=== PATIENT | female | born 1980 | race Caucasian/White ===

== ENCOUNTER 2018-04-20 12:47 | Emergency (ER) | payer BC, SELFPAY ==
--- NOTE | 2018-04-20 15:02 | EDPHYS ---
Physician Documentation [facility] Name: Ritika Lewis Age: 38 yrs Sex: Female : 1980 Arrival Date: 04/20/2018 Time: 12:49 Bed 11 Private MD: David Vallejo ED Physician Jose Sargent HPI: 04/20 14:58 This 38 yrs old Female presents to ER via Ambulatory with complaints of josh Congestion, Cough. 14:58 The patient or guardian reports cough, that is constant. Onset: The symptoms/episode josh began/occurred 3 day(s) ago. Severity of symptoms: At their worst the symptoms were mild, in the emergency department the symptoms are unchanged. Modifying factors: The symptoms are alleviated by nothing. Associated signs and symptoms: The patient has no apparent associated signs or symptoms. The patient has not experienced similar symptoms in the past. Historical: - Allergies: 13:08 No Known Allergies; ph - PSHx: 13:08 Tubal ligation; Knee surgery; ph - Immunization history:: Adult Immunizations up to date. - Social history:: Smoking status: Patient/guardian denies using tobacco. - Ebola Screening: : Patient negative for fever greater than or equal to 101.5 degrees Fahrenheit, and additional compatible Ebola Virus Disease symptoms Patient denies exposure to infectious person Patient denies travel to an Ebola-affected area in the 21 days before illness onset. ROS: 14:59 Constitutional: Negative for fever, chills, and weight loss, Eyes: Negative for injury, josh pain, redness, and discharge, ENT: Negative for injury, pain, and discharge, Neck: Negative for injury, pain, and swelling, Cardiovascular: Negative for chest pain, palpitations, and edema, Abdomen/GI: Negative for abdominal pain, nausea, vomiting, diarrhea, and constipation, Back: Negative for injury and pain, : Negative for injury, bleeding, discharge, and swelling, MS/Extremity: Negative for injury and deformity, Skin: Negative for injury, rash, and discoloration, Neuro: Negative for headache, weakness, numbness, tingling, and seizure, Psych: Negative for depression, anxiety, suicide ideation, homicidal ideation, and hallucinations, Allergy/Immunology: Negative for hives, rash, and allergies, Endocrine: Negative for neck swelling, polydipsia, polyuria, polyphagia, and marked weight changes, Hematologic/Lymphatic: Negative for swollen nodes, abnormal bleeding, and unusual bruising. 14:59 Respiratory: Positive for cough, with green sputum. Exam: 14:59 Constitutional: This is a well developed, well nourished patient who is awake, alert, josh and in no acute distress. Head/Face: Normocephalic, atraumatic. Eyes: Pupils equal round and reactive to light, extra-ocular motions intact. Lids and lashes normal. Conjunctiva and sclera are non-icteric and not injected. Cornea within normal limits. Periorbital areas with no swelling, redness, or edema. ENT: Nares patent. No nasal discharge, no septal abnormalities noted. Tympanic membranes are normal and external auditory canals are clear. Oropharynx with no redness, swelling, or masses, exudates, or evidence of obstruction, uvula midline. Mucous membranes moist. Neck: Trachea midline, no thyromegaly or masses palpated, and no cervical lymphadenopathy. Supple, full range of motion without nuchal rigidity, or vertebral point tenderness. No Meningismus. Chest/axilla: Normal chest wall appearance and motion. Nontender with no deformity. No lesions are appreciated. Cardiovascular: Regular rate and rhythm with a normal S1 and S2. No gallops, murmurs, or rubs. Normal PMI, no JVD. No pulse deficits. Respiratory: Lungs have equal breath sounds bilaterally, clear to auscultation and percussion. No rales, rhonchi or wheezes noted. No increased work of breathing, no retractions or nasal flaring. Abdomen/GI: Soft, non-tender, with normal bowel sounds. No distension or tympany. No guarding or rebound. No evidence of tenderness throughout. Back: No spinal tenderness. No costovertebral tenderness. Full range of motion. Skin: Warm, dry with normal turgor. Normal color with no rashes, no lesions, and no evidence of cellulitis. MS/ Extremity: Pulses equal, no cyanosis. Neurovascular intact. Full, normal range of motion. Neuro: Awake and alert, GCS 15, oriented to person, place, time, and situation. Cranial nerves II-XII grossly intact. Motor strength 5/5 in all extremities. Sensory grossly intact. Cerebellar exam normal. Normal gait. Psych: Awake, alert, with orientation to person, place and time. Behavior, mood, and affect are within normal limits. Vital Signs: 13:08 BP 145 / 82; Pulse 76; Resp 18; Temp 98.3; Pulse Ox 99% on R/A; Weight 65.77 kg; Height ph 5 ft. 8 in. (172.72 cm); 13:08 Body Mass Index 22.05 (65.77 kg, 172.72 cm) ph MDM: 14:21 Patient medically screened. [facility] 14:59 Data reviewed: vital signs, nurses notes, lab test result(s), radiologic studies, plain josh films. 04/20 14:44 Order name: Urine Dipstick--Ancillary (enter results) eb 04/20 14:37 Order name: Chest Single View XRAY ss Administered Medications: 15:05 Drug: Zithromax 500 mg Route: PO; rv 15:28 Follow up: Response: No adverse reaction rv Disposition: 04/20/18 15:01 Discharged to Home. Impression: Cough, Acute upper respiratory infection, unspecified. - Condition is Stable. - Discharge Instructions: Upper Respiratory Infection, Adult, Cool Mist Vaporizer, Upper Respiratory Infection, Adult, [id number], Cough, Adult, [id number], Cough, Adult. - Prescriptions for Cheratussin AC 10- 100 mg/5 mL Oral liquid - take 10 milliliter by ORAL route every 6 hours; 160 milliliter. Zithromax Z- Claudio 250 mg Oral Tablet - take 1 tablet by ORAL route as directed for 5 days Day 1 - take two (2) tablets one time. Day 2, 3, 4 , 5 take one (1) tablet once daily.; 6 tablet. - Medication Reconciliation Form, Thank You Letter, Antibiotic Education, Prescription Opioid Use form. - Follow up: David Vallejo MD; When: 2 - 3 days; Reason: Recheck today's complaints, Continuance of care, Re-evaluation by your physician. - Problem is new. - Symptoms have improved. Signatures: Dispatcher [employer] EDJose Mejia MD MD cha Hall, Patricia, RN RN Walt Walker, RN RN rv Corrections: (The following items were deleted from the chart) 15:33 15:01 04/20/2018 15:01 Discharged to Home. Impression: Cough; Acute upper respiratory rv infection, unspecified. Condition is Stable. Forms are Medication Reconciliation Form, Thank You Letter, Antibiotic Education, Prescription Opioid Use. Follow up: David Vallejo; When: 2 - 3 days; Reason: Recheck today's complaints, Continuance of care, Re-evaluation by your physician. Problem is new. Symptoms have improved. josh
--- NOTE | 2018-04-20 15:02 | ER ---
Nurse's Notes [facility] Name: Ritika Lewis Age: 38 yrs Sex: Female : 1980 Arrival Date: 04/20/2018 Time: 12:49 Bed 11 Private MD: David Vallejo Diagnosis: Cough;Acute upper respiratory infection, unspecified Presentation: 04/20 13:06 Presenting complaint: Patient states: " I lost my voice last week and now I've got a ph cough and I'm coughing up green stuff." Reports SOB denies N/V/D. Transition of care: patient was not received from another setting of care. Onset of symptoms was April 20, 2018. Risk Assessment: Do you want to hurt yourself or someone else? Patient reports no desire to harm self or others. Initial Sepsis Screen: Does the patient meet any 2 criteria? No. Patient's initial sepsis screen is negative. Does the patient have a suspected source of infection? No. Patient's initial sepsis screen is negative. Care prior to arrival: None. 13:06 Method Of Arrival: Ambulatory 13:06 Acuity: MACKENZIE 4 ph Historical: - Allergies: 13:08 No Known Allergies; ph - PSHx: 13:08 Tubal ligation; Knee surgery; ph - Immunization history:: Adult Immunizations up to date. - Social history:: Smoking status: Patient/guardian denies using tobacco. - Ebola Screening: : Patient negative for fever greater than or equal to 101.5 degrees Fahrenheit, and additional compatible Ebola Virus Disease symptoms Patient denies exposure to infectious person Patient denies travel to an Ebola-affected area in the 21 days before illness onset. Screenin:32 Abuse screen: Denies threats or abuse. Denies injuries from another. Nutritional iw screening: No deficits noted. Tuberculosis screening: No symptoms or risk factors identified. Fall Risk None identified. Assessment: 14:32 General: Appears in no apparent distress. Behavior is calm, cooperative. Pain: Denies iw pain. Cardiovascular: Capillary refill < 3 seconds in bilateral fingers Patient's skin is warm and dry. Respiratory: Airway is patent Respiratory effort is even, unlabored, Respiratory pattern is regular, symmetrical, Breath sounds are clear bilaterally. GI: Abdomen is flat, non-distended. Derm: Skin is intact, is healthy with good turgor. Musculoskeletal: Range of motion: intact in all extremities. Vital Signs: 13:08 BP 145 / 82; Pulse 76; Resp 18; Temp 98.3; Pulse Ox 99% on R/A; Weight 65.77 kg; Height ph 5 ft. 8 in. (172.72 cm); 13:08 Body Mass Index 22.05 (65.77 kg, 172.72 cm) ph ED Course: 12:49 Patient arrived in ED. sb2 12:50 David Vallejo MD is Private Physician. sb2 13:07 Triage completed. ph 13:08 Arm band placed on. ph 14:20 Jose Sargent MD is Attending Physician. josh 14:32 Aviva Mendes, RN is Primary Nurse. iw 14:53 X-ray completed. Portable x-ray completed in exam room. Patient tolerated procedure jb2 well. 14:54 Chest Single View XRAY In Process Unspecified. EDMS 15:01 David Vallejo MD is Referral Physician. josh 15:31 No provider procedures requiring assistance completed. Patient did not have IV access rv during this emergency room visit. 15:32 Patient has correct armband on for positive identification. Bed in low position. Call rv light in reach. Pulse ox on. NIBP on. Administered Medications: 15:05 Drug: Zithromax 500 mg Route: PO; rv 15:28 Follow up: Response: No adverse reaction rv Outcome: 15:01 Discharge ordered by . josh 15:32 Discharged to home ambulatory. rv 15:32 Condition: good 15:32 Discharge instructions given to patient, Instructed on discharge instructions, follow up and referral plans. medication usage, Demonstrated understanding of instructions, follow-up care, medications, Prescriptions given X 2. 15:33 Patient left the ED. rv Signatures: Dispatcher [employer] EDGA Jose Sargent MD MD cha Buechter, Jesse jb2 Aviva Mendes, BE LR Shayy Green RN RN Krissy Weber sb2 Walt Walker RN RN rv
[2018-04-20] MEDS ORDERED: AZITHROMYCIN 250 MG TAB ONE (15:05)
--- NOTE | 2018-04-20 15:26 | RAD REPORT ---
EXAM DESCRIPTION: RAD - Chest Single View - 04/20/2018 2:54 pm CLINICAL HISTORY: Cough and congestion, shortness of breath COMPARISON: None. TECHNIQUE: AP portable chest image was obtained 1448 hours . FINDINGS: Lungs are clear. Heart and vasculature are normal. Nipple shadow present lower right lung field. No measurable pleural effusion and no pneumothorax. No gross bony abnormality seen. No acute a ortic findings suspected. IMPRESSION: No acute cardiopulmonary process.
[2018-04-20 17:28] LABS: Urine Blood NEGATIVE (NEG); Urine Glucose NEGATIVE (NEG); Urine Protein NEGATIVE (NEG)
[2018-04-27] MEDS ORDERED: hydrOXYzine HCl 25 MG TAB ONE (20:12)
== END 2018-04-20 15:33 | disposition home or self-care (01) ==
LOC: ER 12:47
DX: J06.9 Acute upper respiratory infection, unspecified (principal)
CPT/HCPCS: 71045; 81003; 99284

== ENCOUNTER 2018-08-31 11:58 | Emergency (ER) | payer SELFPAY ==
--- NOTE | 2018-08-31 14:48 | ER ---
Nurse's Notes [facility] Name: Ritika Lewis Age: 38 yrs Sex: Female : 1980 Arrival Date: 08/31/2018 Time: 12:02 Bed 11 Private MD: David Vallejo Diagnosis: Influenza-like illness Presentation: 08/31 12:13 Presenting complaint: Patient states: Bilateral ear pain, described as having fluid in sg the ears, reports having chest congestion with cough sneezing and runny nose with back pain starting this morning, reports taking OTC cold medication but nothing is relieving the pain. Transition of care: patient was not received from another setting of care. Onset of symptoms was August 31, 2018. Risk Assessment: Do you want to hurt yourself or someone else? Patient reports no desire to harm self or others. Initial Sepsis Screen: Does the patient meet any 2 criteria? No. Patient's initial sepsis screen is negative. Does the patient have a suspected source of infection? No. Patient's initial sepsis screen is negative. Care prior to arrival: None. 12:13 Method Of Arrival: Ambulatory sg 12:13 Acuity: MACKENZIE 4 sg [employer]: 12:14 LMP 08/11/2018 sg Historical: - Allergies: 12:15 No Known Allergies; sg - Home Meds: 12:15 None [Active]; sg - PSHx: 12:15 Tubal ligation; Knee surgery; sg - Immunization history:: Adult Immunizations up to date. - Social history:: Smoking status: Patient/guardian denies using tobacco. - Ebola Screening: : Patient negative for fever greater than or equal to 101.5 degrees Fahrenheit, and additional compatible Ebola Virus Disease symptoms Patient denies exposure to infectious person Patient denies travel to an Ebola-affected area in the 21 days before illness onset No symptoms or risks identified at this time. Screenin:15 Abuse screen: Denies threats or abuse. Denies injuries from another. Nutritional iw screening: No deficits noted. Tuberculosis screening: No symptoms or risk factors identified. Fall Risk None identified. Assessment: 13:14 General: Appears in no apparent distress. Behavior is calm, cooperative. Pain: iw Complains of pain in right ear and left ear. Neuro: Level of Consciousness is awake, alert, obeys commands, Oriented to person, place, time, situation. Cardiovascular: Patient's skin is warm and dry. Respiratory: Respiratory effort is even, unlabored, Respiratory pattern is regular. EENT: Reports pain when swallowing. Derm: Skin is intact, is healthy with good turgor. Musculoskeletal: Range of motion: intact in all extremities. 15:05 Reassessment: Patient appears in no apparent distress at this time. Patient and/or iw family updated on plan of care and expected duration. Pain level reassessed. Patient is alert, oriented x 3, equal unlabored respirations, skin warm/dry/pink. Patient states feeling better. Patient states symptoms have improved. Vital Signs: 12:14 BP 142 / 86; Pulse 70; Resp 17; Temp 97.7; Pulse Ox 100% on R/A; Pain 6/10; sg 14:40 BP 138 / 74; Pulse 69; Resp 16; Pulse Ox 98% on R/A; Pain 4/10; iw ED Course: 12:02 Patient arrived in ED. mr 12:03 David Vallejo MD is Private Physician. mr 12:13 Arm band placed on. EKG completed in triage. Results shown to MD. sg 12:14 Triage completed. sg 12:29 Jose Wise PA is PHCP. cp 12:29 Domo Mina MD is Attending Physician. cp 12:49 Aviva Mendes RN is Primary Nurse. iw 13:16 No provider procedures requiring assistance completed. Flu and/or RSV swab sent to lab. iw Strep swab sent to lab. 14:00 Patient has correct armband on for positive identification. iw 14:47 David Vallejo MD is Referral Physician. cp 15:06 Patient did not have IV access during this emergency room visit. iw Administered Medications: No medications were administered Outcome: 14:48 Discharge ordered by MD. cp 15:06 Discharged to home ambulatory. iw 15:06 Condition: good 15:06 Discharge instructions given to patient, Instructed on discharge instructions, follow up and referral plans. medication usage, Demonstrated understanding of instructions, follow-up care, medications, Prescriptions given X 2. 15:08 Patient left the ED. iw Signatures: Gagandeep Fernandez RN RN Juany Hightower mr Aviva Mendes RN RN Jose Wise PA PA cp
--- NOTE | 2018-08-31 14:49 | EDPHYS ---
Physician Documentation [facility] Name: Ritika Lewis Age: 38 yrs Sex: Female : 1980 Arrival Date: 08/31/2018 Time: 12:02 Bed 11 Private MD: David Vallejo ED Physician Domo Mina HPI: 08/31 12:40 This 38 yrs old Female presents to ER via Ambulatory with complaints of cough.cp 12:40 The patient or guardian reports cough, that is intermittent, with productive sputum, cp flu symptoms, arthralgias, low-grade fever. 12:40 Onset: The symptoms/episode began/occurred last night, and became worse this morning. cp Associated signs and symptoms: Pertinent positives: earache, sore throat, Pertinent negatives: chest pain, diarrhea, vomiting. Severity of symptoms: in the emergency department the symptoms are unchanged despite home interventions. 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 - Social history:: Smoking status: Patient/guardian denies using tobacco. - Ebola Screening: : Patient negative for fever greater than or equal to 101.5 degrees Fahrenheit, and additional compatible Ebola Virus Disease symptoms Patient denies exposure to infectious person Patient denies travel to an Ebola-affected area in the 21 days before illness onset No symptoms or risks identified at this time. ROS: 12:45 Constitutional: Positive for body aches, Negative for fever, poor PO intake. cp 12:45 Eyes: Negative for injury, pain, redness, and discharge. cp 12:45 ENT: Positive for ear pain, sinus congestion, sore throat, Negative for drainage from cp ear(s), difficulty swallowing, difficulty handling secretions. 12:45 Neck: Negative for pain with movement, pain at rest, stiffness. 12:45 Respiratory: Positive for cough, Negative for shortness of breath, wheezing. 12:45 Abdomen/GI: Negative for abdominal pain, nausea, vomiting, and diarrhea. 12:45 Back: Positive for pain at rest, pain with movement. 12:45 Skin: Negative for cellulitis, rash. 12:45 Neuro: Positive for headache, Negative for altered mental status, weakness. 12:45 All other systems are negative. Exam: 12:48 Constitutional: The patient appears in no acute distress, alert, awake, non-toxic, well cp developed, well nourished. 12:48 Head/Face: Normocephalic, atraumatic. cp 12:50 Eyes: Periorbital structures: appear normal, Conjunctiva: normal, no exudate, no cp injection, Lids and lashes: appear normal, bilaterally. 12:50 ENT: External ear(s): are unremarkable, Ear canal(s): are normal, clear, TM's: bulging, cp is not appreciated, bilaterally, dullness, bilaterally, erythema, is not appreciated, bilaterally, Nose: is normal, Mouth: Lips: moist, Oral mucosa: pink and intact, moist, Posterior pharynx: is normal, airway is patent, no erythema, no exudate, Voice: is normal. 12:50 Neck: ROM/movement: is normal, is supple, without pain, no range of motions limitations, no meningismus, no nuchal rigidity, Lymph nodes: no appreciated lymphadenopathy. 12:50 Chest/axilla: Inspection: normal, Palpation: is normal, no crepitus, no tenderness. 12:50 Cardiovascular: Rate: normal, Rhythm: regular. 12:50 Respiratory: the patient does not display signs of respiratory distress, Respirations: normal, no use of accessory muscles, no retractions, no splinting, no tachypnea, labored breathing, is not present, Breath sounds: bronchial sounds, that are mild, are heard diffusely, decreased breath sounds, are not appreciated, stridor, is not appreciated, + upper airway congestion. wheezing: is not appreciated. 12:50 Abdomen/GI: Inspection: abdomen appears normal, Palpation: abdomen is soft and non-tender, in all quadrants, rebound tenderness, is not appreciated, voluntary guarding, is not appreciated, involuntary guarding, is not appreciated. 12:50 Back: pain, that is mild, ROM is normal. 12:50 Skin: cellulitis, is not appreciated, no rash present. 12:50 Neuro: Orientation: to person, place \\T\\ time. Mentation: is normal, Cerebellar function: is grossly normal, Motor: is normal, Sensation: is normal. Vital Signs: 12:14 BP 142 / 86; Pulse 70; Resp 17; Temp 97.7; Pulse Ox 100% on R/A; Pain 6/10; sg 14:40 BP 138 / 74; Pulse 69; Resp 16; Pulse Ox 98% on R/A; Pain 4/10; iw MDM: 12:29 Patient medically screened. cp 14:45 Antibiotic administration: Not indicated, the patient does not have an appreciated cp infiltrate. 14:45 Data reviewed: vital signs, nurses notes, lab test result(s), and as a result, I will cp discharge patient. 08/31 12:33 Order name: Strep cp 08/31 12:33 Order name: Influenza Screen (a \\T\\ B) cp 08/31 12:33 Order name: Urine Dipstick-Ancillary (obtain specimen); Complete Time: 13:14 cp 08/31 13:35 Order name: Throat Culture EDMS Administered Medications: No medications were administered Disposition: 08/31/18 14:48 Discharged to Home. Impression: Influenza-like illness. - Condition is Stable. - Discharge Instructions: Influenza, Adult. - Prescriptions for Tamiflu 75 mg Oral Capsule - take 1 tablet by ORAL route every 12 hours for 5 days; 10 tablet. Guaifenesin AC 10- 100 mg/5 mL Oral Liquid - take 10 milliliters by ORAL route every 4 hours As needed; 180 milliliter. - Work release form, Medication Reconciliation Form, Thank You Letter, Antibiotic Education, Prescription Opioid Use form. - Follow up: David Vallejo MD; When: 2 - 3 days; Reason: no improvement. Addendum: 09/05/2018 03:30 Co-signature as Attending Physician, Domo Mina MD Available for consultation at p s1 all times. Signatures: Dispatcher [employer] EDMS Gagandeep Fernandez RN RN Aviva Franks RN RN iw Jose Wise PA PA cp Singer, Phillip, MD MD ps1 Corrections: (The following items were deleted from the chart) 08/31 15:07 12:33 Urine Test ordered. [facility] 15:08 14:48 08/31/2018 14:48 Discharged to Home. Impression: Influenza-like illness. iw Condition is Stable. Forms are Medication Reconciliation Form, Thank You Letter, Antibiotic Education, Prescription Opioid Use. Follow up: David Vallejo; When: 2 - 3 days; Reason: no improvement. cp 21:10 21:09 This 38 yrs old Female presents to ER via Ambulatory with complaints of cp cough. cp 21:14 21:10 Constitutional: Positive for body aches, Negative for fever, poor PO intake, cp cp 21:14 21:10 Eyes: Negative for injury, pain, redness, and discharge, cp cp 21:14 21:10 ENT: Positive for ear pain, sinus congestion, sore throat, Negative for drainage cp from ear(s), difficulty swallowing, difficulty handling secretions, cp 21:14 21:10 Neck: Negative for pain with movement, pain at rest, stiffness, cp cp 21:14 21:10 Cardiovascular: Negative for chest pain, cp cp 21:14 21:10 Respiratory: Positive for cough, "sounds productive", Negative for wheezing, cp cp 21:14 21:10 Abdomen/GI: Negative for abdominal pain, nausea, vomiting, and diarrhea, cp anorexia, cp 21:14 21:10 Back: Positive for pain at rest, pain with movement, cp cp 21:14 21:10 Skin: Negative for cellulitis, rash, cp cp 21:14 21:10 Neuro: Negative for altered mental status, weakness, cp cp 21:14 21:10 All other systems are negative, cp cp
== END 2018-08-31 15:08 | disposition home or self-care (01) ==
LOC: ER 11:58
DX: J11.1 Influenza due to unidentified influenza virus with other respiratory manifestations (principal)
CPT/HCPCS: 87070; 87081; 87804; 99283

== ENCOUNTER 2018-11-02 09:24 | Emergency (ER) | payer SELFPAY ==
[2018-11-02 09:57] LABS: Urine Blood TRACE (NEG); Urine Glucose NEGATIVE (NEG); Urine Protein NEGATIVE (NEG)
--- NOTE | 2018-11-02 10:18 | RAD REPORT ---
EXAM DESCRIPTION: Ribs Right - 11/02/2018 10:08 am CLINICAL HISTORY: Right rib pain FINDINGS: No fracture is seen
--- NOTE | 2018-11-02 10:21 | EDPHYS ---
Physician Documentation [facility] Name: Ritika Lewis Age: 38 yrs Sex: Female : 1980 Arrival Date: 11/02/2018 Time: 09:27 Bed 24 Private MD: David Vallejo ED Physician Jose Sargent HPI: 11/02 09:50 This 38 yrs old Female presents to ER via Ambulatory with complaints of Chest josh Wall Pain. 09:50 The patient or guardian reports chest pain that is located primarily in the anterior josh chest wall, right. The pain does not radiate. Associated signs and symptoms: The patient has no apparent associated signs or symptoms. The chest pain is described as stabbing. Modifying factors: The symptoms are alleviated by remaining still, the symptoms are aggravated by activity, breathing, cough, movement, palpation of area, swallowing, twisting torso. Severity of pain: At its worst the pain was moderate in the emergency department the pain is unchanged. 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 - Social history:: Smoking status: Patient/guardian denies using tobacco. - Ebola Screening: : No symptoms or risks identified at this time. - Family history:: not pertinent. ROS: 09:50 Constitutional: Negative for fever, chills, and weight loss, Eyes: Negative for injury, josh pain, redness, and discharge, ENT: Negative for injury, pain, and discharge, Neck: Negative for injury, pain, and swelling, Cardiovascular: Negative for chest pain, palpitations, and edema, Abdomen/GI: Negative for abdominal pain, nausea, vomiting, diarrhea, and constipation, Back: Negative for injury and pain, : Negative for injury, bleeding, discharge, and swelling, MS/Extremity: Negative for injury and deformity, Skin: Negative for injury, rash, and discoloration, Neuro: Negative for headache, weakness, numbness, tingling, and seizure, Psych: Negative for depression, anxiety, suicide ideation, homicidal ideation, and hallucinations, Endocrine: Negative for neck swelling, polydipsia, polyuria, polyphagia, and marked weight changes, Hematologic/Lymphatic: Negative for swollen nodes, abnormal bleeding, and unusual bruising. 09:50 Respiratory: Positive for right chest wall contusion. Exam: 09:50 Constitutional: This is a well developed, well nourished patient who is awake, alert, josh and in no acute distress. Head/Face: Normocephalic, atraumatic. Eyes: Pupils equal round and reactive to light, extra-ocular motions intact. Lids and lashes normal. Conjunctiva and sclera are non-icteric and not injected. Cornea within normal limits. Periorbital areas with no swelling, redness, or edema. ENT: Nares patent. No nasal discharge, no septal abnormalities noted. Tympanic membranes are normal and external auditory canals are clear. Oropharynx with no redness, swelling, or masses, exudates, or evidence of obstruction, uvula midline. Mucous membranes moist. Neck: Trachea midline, no thyromegaly or masses palpated, and no cervical lymphadenopathy. Supple, full range of motion without nuchal rigidity, or vertebral point tenderness. No Meningismus. Chest/axilla: Normal chest wall appearance and motion. Nontender with no deformity. No lesions are appreciated. Cardiovascular: Regular rate and rhythm with a normal S1 and S2. No gallops, murmurs, or rubs. Normal PMI, no JVD. No pulse deficits. Abdomen/GI: Soft, non-tender, with normal bowel sounds. No distension or tympany. No guarding or rebound. No evidence of tenderness throughout. Back: No spinal tenderness. No costovertebral tenderness. Full range of motion. Skin: Warm, dry with normal turgor. Normal color with no rashes, no lesions, and no evidence of cellulitis. MS/ Extremity: Pulses equal, no cyanosis. Neurovascular intact. Full, normal range of motion. Neuro: Awake and alert, GCS 15, oriented to person, place, time, and situation. Cranial nerves II-XII grossly intact. Motor strength 5/5 in all extremities. Sensory grossly intact. Cerebellar exam normal. Normal gait. Psych: Awake, alert, with orientation to person, place and time. Behavior, mood, and affect are within normal limits. 09:50 Chest/axilla: Inspection: normal, Palpation: tenderness, that is mild, of the right breast, Axilla: are normal, Breasts: are normal, Lymph nodes: lymphadenopathy is not appreciated. 09:50 Respiratory: the patient does not display signs of respiratory distress, Respirations: normal, Breath sounds: are clear throughout, Respiratory rate: 18 Vital Signs: 09:32 BP 123 / 76; Pulse 68; Resp 18; Temp 97.7; Pulse Ox 100% ; Weight 73.03 kg; Height 5 sv ft. 8 in. (172.72 cm); Pain 6/10; 10:39 BP 120 / 74; Pulse 62; Resp 16; Pulse Ox 99% on R/A; Pain 3/10; ls4 09:32 Body Mass Index 24.48 (73.03 kg, 172.72 cm) sv MDM: 09:34 Patient medically screened. [facility] 11/02 09:47 Order name: Urine Dipstick--Ancillary (enter results) 11/02 09:47 Order name: Urine --Ancillary (enter results) 11/02 09:33 Order name: Ribs Right XRAY sv Administered Medications: 10:36 Drug: Motrin 600 mg Route: PO; ls4 11:02 Follow up: Response: No adverse reaction; Marked relief of symptoms ls4 Disposition: 11/02/18 10:20 Discharged to Home. Impression: Other chest pain, Contusion of right front wall of thorax. - Condition is Stable. - Discharge Instructions: Chest Wall Pain. - Prescriptions for Ibuprofen 600 mg Oral Tablet - take 1 tablet by ORAL route every 8 hours As needed take with food; 21 tablet. Tylenol- Codeine #3 300-30 mg Oral Tablet - take 2 tablet by ORAL route every 6 hours As needed; 30 tablet. - Medication Reconciliation Form, Thank You Letter, Antibiotic Education, Prescription Opioid Use, Work release form form. - Follow up: David Vallejo; When: 2 - 3 days; Reason: Recheck today's complaints, Re-evaluation by your physician. - Problem is new. - Symptoms have improved. Signatures: Dispatcher [employer] Jo Ann Carvalho, RN RN Jose Jones MD MD cha Stewart, Lisa, RN RN ls4 Corrections: (The following items were deleted from the chart) 10:48 10:20 11/02/2018 10:20 Discharged to Home. Impression: Other chest pain; Contusion of ls4 right front wall of thorax. Condition is Stable. Discharge Instructions: Chest Wall Pain. Prescriptions for Ibuprofen 600 mg Oral Tablet - take 1 tablet by ORAL route every 8 hours As needed take with food; 21 tablet, Tylenol-Codeine #3 300-30 mg Oral Tablet - take 2 tablet by ORAL route every 6 hours As needed; 30 tablet. and Forms are Medication Reconciliation Form, Thank You Letter, Antibiotic Education, Prescription Opioid Use. Follow up: David Vallejo; When: 2 - 3 days; Reason: Recheck today's complaints, Re-evaluation by your physician. Problem is new. Symptoms have improved. josh
--- NOTE | 2018-11-02 10:21 | ER ---
Nurse's Notes [facility] Name: Ritika Lewis Age: 38 yrs Sex: Female : 1980 Arrival Date: 11/02/2018 Time: 09:27 Bed 24 Private MD: David Vallejo Diagnosis: Other chest pain;Contusion of right front wall of thorax Presentation: 11/02 09:31 Presenting complaint: Patient states: right rib pain started Bhavesh. Pt was playing sv volleyball and dove for a ball. Transition of care: patient was not received from another setting of care. Onset of symptoms was October 29, 2018. Care prior to arrival: None. 09:31 Method Of Arrival: Ambulatory sv 09:31 Acuity: MACKENZIE 4 sv 09:58 Risk Assessment: Do you want to hurt yourself or someone else? Patient reports no ls4 desire to harm self or others. Initial Sepsis Screen: Does the patient meet any 2 criteria? No. Patient's initial sepsis screen is negative. Does the patient have a suspected source of infection? No. Patient's initial sepsis screen is negative. Triage Assessment: 09:58 General: Appears in no apparent distress. Behavior is calm, cooperative. 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 - Social history:: Smoking status: Patient/guardian denies using tobacco. - Ebola Screening: : No symptoms or risks identified at this time. - Family history:: not pertinent. Screenin:57 Abuse screen: Denies threats or abuse. Denies injuries from another. Nutritional ls4 screening: No deficits noted. Tuberculosis screening: No symptoms or risk factors identified. Fall Risk None identified. Assessment: 10:30 Pain: Complains of pain in right breast. ls4 10:30 General: Appears in no apparent distress. Neuro: No deficits noted. Respiratory: No ls4 deficits noted. Airway is patent Respiratory effort is even, unlabored, Respiratory pattern is regular. Derm: No deficits noted. Musculoskeletal: No deficits noted. Vital Signs: 09:32 BP 123 / 76; Pulse 68; Resp 18; Temp 97.7; Pulse Ox 100% ; Weight 73.03 kg; Height 5 sv ft. 8 in. (172.72 cm); Pain 6/10; 10:39 BP 120 / 74; Pulse 62; Resp 16; Pulse Ox 99% on R/A; Pain 3/10; ls4 09:32 Body Mass Index 24.48 (73.03 kg, 172.72 cm) sv ED Course: 09:27 Patient arrived in ED. mr 09:28 David Vallejo MD is Private Physician. mr 09:32 Triage completed. sv 09:33 Arm band placed on. sv 09:34 Jose Sargent MD is Attending Physician. josh 09:56 Patient moved to radiology via wheelchair. sw 09:57 Latosha Adams, BE is Primary Nurse. ls4 09:57 Patient has correct armband on for positive identification. ls4 09:57 No provider procedures requiring assistance completed. ls4 10:07 X-ray completed. Patient tolerated procedure well. sw 10:08 Ribs Right XRAY In Process Unspecified. EDMS 10:11 Patient moved back from radiology. sw 10:20 David Vallejo MD is Referral Physician. josh 10:48 Patient did not have IV access during this emergency room visit. ls4 Administered Medications: 10:36 Drug: Motrin 600 mg Route: PO; ls4 11:02 Follow up: Response: No adverse reaction; Marked relief of symptoms ls4 Outcome: 10:20 Discharge ordered by . josh 10:48 Patient left the ED. ls4 11:00 Discharged to home ambulatory, with family. ls4 11:00 Condition: good 11:00 Discharge instructions given to patient, family, Instructed on discharge instructions, follow up and referral plans. medication usage, Demonstrated understanding of instructions, follow-up care, medications, Prescriptions given X 2. Signatures: Dispatcher [employer] EDDE Jo Ann Craig RN RN sv Anderson, Corey, MD MD cha Rivera, Mary mr GoodenCristiane Lisa, BE RN ls4 Corrections: (The following items were deleted from the chart) 09:33 09:32 Pulse 68bpm; Resp 18bpm; Pulse Ox 100%; Temp 97.7F; 73.03 kg; Height 5 ft. 8 in.; sv BMI: 24.4; Pain 6/10; sv
[2018-11-02] MEDS ORDERED: IBUPROFEN 400 MG TAB ONE (10:43)
[2018-11-02] MEDS ORDERED: IBUPROFEN 200 MG TAB PO ONE (10:43)
== END 2018-11-02 10:48 | disposition home or self-care (01) ==
LOC: ER 09:24
DX: S20.211A Contusion of right front wall of thorax, initial encounter (principal); W18.39XA Other fall on same level, initial encounter; Y93.68 Activity, volleyball (beach) (court); Y92.9 Unspecified place or not applicable
CPT/HCPCS: 81003; 81025; 99283

== ENCOUNTER 2021-08-01 12:45 | Emergency (ER) | payer BC, SELFPAY ==
[2021-08-01 14:24] LABS: SARS-COV-2 RT PCR NEGATIVE (NEGATIVE)
[2021-08-01] MEDS ORDERED: HYDROCODONE/CHLORPHEN 5 ML/OSYR ONE (15:22)
--- NOTE | 2021-08-01 15:42 | RAD REPORT ---
EXAM DESCRIPTION: RAD - Chest Single View - 08/01/2021 3:34 pm CLINICAL HISTORY: COUGH COMPARISON: Chest Single View dated 04/20/2018 FINDINGS: Lines: None. Lungs: No evidence of edema or pneumonia. Pleural: No significant pleural effusions or pneumothorax. Cardiac: The heart size is within normal limits. Bones: No acute fractures. Other: IMPRESSION: No acute cardiopulmonary disease.
--- NOTE | 2021-08-01 16:02 | EDPHYS ---
Physician Documentation [facility] Name: Ritika Lewis Age: 41 yrs Sex: Female : 1980 Arrival Date: 08/01/2021 Time: 12:47 Bed 9 Private MD: Kaleigh Carbajal ED Physician Waqas Hilton HPI: 08/02 07:23 This 41 yrs old Female presents to ER via Ambulatory with complaints of Cough, Chest kdr Congestion, Sinus Pain. 07:23 This 41 yrs old Female presents to ER via Ambulatory with complaints of Cough, Chest kdr Congestion, Sinus Pain. 07:23 The patient or guardian reports cough, that is intermittent, described as mild, kdr difficulty breathing. Onset: The symptoms/episode began/occurred gradually, 3 day(s) ago. Severity of symptoms: At their worst the symptoms were mild, in the emergency department the symptoms are unchanged. Modifying factors: The symptoms are alleviated by nothing, the symptoms are aggravated by Talking and congestion. Associated signs and symptoms: The patient has no apparent associated signs or symptoms. The patient has experienced similar episodes in the past, multiple times. The patient has not recently seen a physician. Patient complains of sinus congestion and a cough for 3 days. She is concerned that she may have recurrent bronchitis. She states that she gets this specific problem annually. 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 - Social history:: Smoking status: Patient denies any tobacco usage or history of. ROS: 08/02 07:23 Constitutional: Negative for fever, chills, and weight loss, Eyes: Negative for injury, kdr pain, redness, and discharge, Neck: Negative for injury, pain, and swelling, Cardiovascular: Negative for chest pain, palpitations, and edema, Abdomen/GI: Negative for abdominal pain, nausea, vomiting, diarrhea, and constipation, Back: Negative for injury and pain, : Negative for injury, bleeding, discharge, and swelling, MS/Extremity: Negative for injury and deformity, Skin: Negative for injury, rash, and discoloration, Neuro: Negative for headache, weakness, numbness, tingling, and seizure activity. Psych: Negative for depression, anxiety, suicide ideation, homicidal ideation, and hallucinations, Allergy/Immunology: Negative for hives, rash, and allergies, Endocrine: Negative for neck swelling, polydipsia, polyuria, polyphagia, and marked weight changes, Hematologic/Lymphatic: Negative for swollen nodes, abnormal bleeding, and unusual bruising. Respiratory: Positive for cough, with no reported sputum. Exam: 07:23 Constitutional: This is a well developed, well nourished patient who is awake, alert, kdr and in no acute distress. Head/Face: Normocephalic, atraumatic. Eyes: Pupils equal round and reactive to light, extra-ocular motions intact. Lids and lashes normal. Conjunctiva and sclera are non-icteric and not injected. Cornea within normal limits. Periorbital areas with no swelling, redness, or edema. Neck: Trachea midline, no thyromegaly or masses palpated, and no cervical lymphadenopathy. Supple, full range of motion without nuchal rigidity, or vertebral point tenderness. No Meningismus. Chest/axilla: Normal chest wall appearance and motion. Nontender with no deformity. No lesions are appreciated. Cardiovascular: Regular rate and rhythm with a normal S1 and S2. No gallops, murmurs, or rubs. Normal PMI, no JVD. No pulse deficits. Respiratory: Lungs have equal breath sounds bilaterally, clear to auscultation and percussion. No rales, rhonchi or wheezes noted. No increased work of breathing, no retractions or nasal flaring. Abdomen/GI: Soft, non-tender, with normal bowel sounds. No distension or tympany. No guarding or rebound. No evidence of tenderness throughout. Back: No spinal tenderness. No costovertebral tenderness. Full range of motion. Skin: Warm, dry with normal turgor. Normal color with no rashes, no lesions, and no evidence of cellulitis. MS/ Extremity: Pulses equal, no cyanosis. Neurovascular intact. Full, normal range of motion. Neuro: Awake and alert, GCS 15, oriented to person, place, time, and situation. Cranial nerves II-XII grossly intact. Motor strength 5/5 in all extremities. Sensory grossly intact. Cerebellar exam normal. Normal gait. Psych: Awake, alert, with orientation to person, place and time. Behavior, mood, and affect are within normal limits. Vital Signs: 08/01 13:11 BP 143 / 82; Pulse 92; Resp 18; Temp 98.2(O); Pulse Ox 100% ; Weight 77.11 kg; Height 5 vg1 ft. 7 in. (170.18 cm); Pain 0/10; 14:25 BP 151 / 80; Pulse 61; Resp 18; Temp 97.9; Pulse Ox 98% on R/A; ww 13:11 Body Mass Index 26.63 (77.11 kg, 170.18 cm) vg1 Mic Coma Score: 14:25 Eye Response: spontaneous(4). Verbal Response: oriented(5). Motor Response: obeys ww commands(6). Total: 15. MDM: 16:01 Patient medically screened. kdr 08/02 07:23 Data reviewed: vital signs, nurses notes, lab test result(s), radiologic studies. kdr Counseling: I had a detailed discussion with the patient and/or guardian regarding: the historical points, exam findings, and any diagnostic results supporting the discharge/admit diagnosis, lab results, radiology results, the need for outpatient follow up. 08/01 13:17 Order name: COVID-19/FLU A+B (Document "Date of Onset" if Symptomatic); Complete Time: vg1 14:59 08/01 14:59 Order name: CXR XRAY; Complete Time: 16:00 kdr Administered Medications: 08/01 15:28 Drug: Tussionex Pennkinetic ER (chlorpheniramine-hydrocodone) Suspension 5 ml Route: PO;ww 16:14 Drug: Augmentin (Amoxicillin-Clavulanate) 875 mg Route: PO; ww Disposition Summary: 08/01/21 16:01 Discharge Ordered Location: Home kdr Problem: new kdr Symptoms: have improved kdr Condition: Stable kdr Diagnosis - Acute upper respiratory infection, unspecified kdr - Cough kdr Followup: kdr - With: Private Physician - When: 2 - 3 days - Reason: If symptoms return, Further diagnostic work-up, Recheck today's complaints, Continuance of care, Re-evaluation by your physician Discharge Instructions: - Discharge Summary Sheet kdr - Upper Respiratory Infection, Adult, [id number] kdr - Cough, Adult kdr Forms: - Medication Reconciliation Form kdr - Thank You Letter kdr - Antibiotic Education kdr - Prescription Opioid Use kdr Prescriptions: - Promethazine VC-Codeine 6.25-5-10 mg/5 mL Oral syrup - take 5 milliliter by ORAL route every 4-6 hours as needed, not to exceed 30 mL kdr in 24 hours; 200 milliliter; Refills: 0, Product Selection Permitted - Augmentin 875-125 mg Oral Tablet - take 1 tablet by ORAL route every 12 hours for 10 days; 20 tablet; Refills: 0, kdr Product Selection Permitted - Prednisone 20 mg Oral Tablet - take 2 tablets by ORAL route once daily for 5 days; 10 tablet; Refills: 0, kdr Product Selection Permitted Signatures: Dispatcher [employer] Waqas Vaughan MD MD kdr Shanna Arciniega RN RN vg1 Eliza Coburn RN RN ww
--- NOTE | 2021-08-01 16:02 | ER ---
Nurse's Notes [facility] Name: Ritika Lewis Age: 41 yrs Sex: Female : 1980 Arrival Date: 08/01/2021 Time: 12:47 Bed 9 Private MD: Kaleigh Carbajal Diagnosis: Acute upper respiratory infection, unspecified;Cough Presentation: 08/01 13:11 Chief complaint: Patient states: sinus congestion and cough x 3 days; states may have vg1 bronchitis. Coronavirus screen: Vaccine status: Patient reports being unvaccinated. Client denies travel out of the [place] in the last 14 days. Ebola Screen: Patient negative for fever greater than or equal to 101.5 degrees Fahrenheit, and additional compatible Ebola Virus Disease symptoms. Initial Sepsis Screen: Does the patient meet any 2 criteria? No. Patient's initial sepsis screen is negative. Does the patient have a suspected source of infection? No. Patient's initial sepsis screen is negative. Risk Assessment: Do you want to hurt yourself or someone else? Patient reports no desire to harm self or others. Onset of symptoms was July 29, 2021. 13:11 Method Of Arrival: Ambulatory vg1 13:11 Acuity: MACKENZIE 4 vg1 Triage Assessment: 13:13 Headache History: Denies prior headaches. General: Appears in no apparent distress. vg1 uncomfortable, Behavior is calm, cooperative. Pain: Denies pain. Neuro: Level of Consciousness is awake, alert, obeys commands, Oriented to person, place, time, situation. Respiratory: Reports cough that is productive, Airway is patent Respiratory effort is even, unlabored. 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 - Social history:: Smoking status: Patient denies any tobacco usage or history of. Screenin:25 Abuse screen: Denies threats or abuse. Denies injuries from another. Nutritional ww screening: No deficits noted. Tuberculosis screening: No symptoms or risk factors identified. Fall Risk None identified. Assessment: 14:25 General: Appears in no apparent distress. comfortable, well groomed, well developed, ww well nourished, Behavior is calm, cooperative, appropriate for age. Pain: Denies pain. Neuro: No deficits noted. Level of Consciousness is awake, alert, obeys commands, Oriented to person, place, time, situation, Gait is steady, Speech is normal. Cardiovascular: No deficits noted. Denies chest pain, Capillary refill < 3 seconds in bilateral fingers. Respiratory: Reports shortness of breath cough that is hacking, Airway is patent Respiratory effort is even, unlabored, Respiratory pattern is regular, symmetrical. GI: No deficits noted. No signs and/or symptoms were reported involving the gastrointestinal system. : No deficits noted. No signs and/or symptoms were reported regarding the genitourinary system. Derm: No deficits noted. No signs and/or symptoms reported regarding the dermatologic system. Skin is intact, is healthy with good turgor, Skin is pink, warm \T\ dry. Musculoskeletal: No deficits noted. No signs and/or symptoms reported regarding the musculoskeletal system. 15:31 Reassessment: Patient appears in no apparent distress at this time. No changes from previously documented assessment. Patient and/or family updated on plan of care and expected duration. Pain level reassessed. Vital Signs: 13:11 BP 143 / 82; Pulse 92; Resp 18; Temp 98.2(O); Pulse Ox 100% ; Weight 77.11 kg; Height 5 vg1 ft. 7 in. (170.18 cm); Pain 0/10; 14:25 BP 151 / 80; Pulse 61; Resp 18; Temp 97.9; Pulse Ox 98% on R/A; ww 13:11 Body Mass Index 26.63 (77.11 kg, 170.18 cm) vg1 Mic Coma Score: 14:25 Eye Response: spontaneous(4). Verbal Response: oriented(5). Motor Response: obeys commands(6). Total: 15. ED Course: 12:47 Patient arrived in ED. am2 12:47 Kaleigh Carbajal FNP-C is Private Physician. am2 13:13 Triage completed. vg1 13:13 Arm band placed on. vg1 13:18 COVID swab sent to lab. Flu and/or RSV swab sent to lab. vg1 13:34 Waqas Hilton MD is Attending Physician. kdr 13:36 Eliza Coburn, RN is Primary Nurse. ww 14:25 Patient has correct armband on for positive identification. Bed in low position. Call ww light in reach. 15:34 CXR XRAY In Process Unspecified. EDMS 16:29 No provider procedures requiring assistance completed. Patient did not have IV access ww during this emergency room visit. Administered Medications: 15:28 Drug: Tussionex Pennkinetic ER (chlorpheniramine-hydrocodone) Suspension 5 ml Route: PO;ww 16:14 Drug: Augmentin (Amoxicillin-Clavulanate) 875 mg Route: PO; ww Outcome: 16:01 Discharge ordered by . kdr 16:28 Discharged to home ambulatory. ww 16:28 Condition: stable 16:28 Discharge instructions given to patient, Instructed on discharge instructions, follow up and referral plans. medication usage, safety practices, Demonstrated understanding of instructions, follow-up care, medications, Prescriptions given X 3. 16:29 Patient left the ED. ww Signatures: Dispatcher [employer] EDOH Waqas Hilton MD MD kdr Amie Guillory am2 Shanna Arciniega, RN RN vg1 Eliza Coburn, RN RN ww Corrections: (The following items were deleted from the chart) 13:16 13:11 BP 164 / 89; Pulse 92bpm; Resp 18bpm; Pulse Ox 100%; Temp 98.2F Oral; 77.11 kg; vg1 Height 5 ft. 7 in.; BMI: 26.6; Pain 0/10; vg1
[2021-08-01] MEDS ORDERED: AMOX/K CLAV 875 MG TAB ONE (16:08)
[2021-08-01 16:48] VITALS: BP 151/80; TEMP 97.9; O2SAT 98
== END 2021-08-01 16:29 | disposition home or self-care (01) ==
LOC: ER 12:45
DX: J06.9 Acute upper respiratory infection, unspecified (principal); Z20.822 Contact with and (suspected) exposure to COVID-19
CPT/HCPCS: 0240U; 71045; 99284

== ENCOUNTER 2021-11-11 11:40 | Emergency (ER) | payer SELFPAY ==
--- OUTSIDE RECORDS SUMMARY | 2021-11-11 11:43 | XMS REPORT | Continuity of Care Document ---
:1980 Author Organization [facility] Address [address] [place] [address] Care Team Providers Name Role Phone Raven Attending Clinician Unavailable Problems This patient has no known problems. Allergies, Adverse Reactions, Alerts This patient has no known allergies or adverse reactions. Medications This patient has no known medications. Procedures This patient has no known procedures. Encounters Start End Encounter Admission Attending Care Care Encounter Source Date/Time Date/Time Type Type Clinicians Facility Department ID 2021-09-11 Outpatient KEO Carbajal [facility] [id number] [facility] 13:13:10 [facility] [id number] [facility] Sherri de la cruz [facility] ent Clinics Results This patient has no known results.
[2021-11-11] MEDS ORDERED: MAGNES/ALUMIN/SIMET 30ML UCUP ONE (12:18)
[2021-11-11] MEDS ORDERED: LIDOCAINE VISCOUS 2% SOLN 15 ML UDC ONE (12:18)
--- NOTE | 2021-11-11 12:20 | EDPHYS ---
Physician Documentation [facility] Name: Ritika Lewis Age: 41 yrs Sex: Female : 1980 Arrival Date: 11/11/2021 Time: 11:42 Bed 11 Private MD: JEANETH Physician Jose Sargent HPI: 11/11 12:07 This 41 yrs old Female presents to ER via Ambulatory with complaints of Sore Throat, kb Swollen Glands. 12:07 The patient presents with sore throat. The patient describes throat pain as constant. kb Onset: The symptoms/episode began/occurred yesterday. Severity of symptoms: At their worst the symptoms were moderate, in the emergency department the symptoms are unchanged. Modifying factors: The symptoms are alleviated by nothing, the symptoms are aggravated by swallowing, Patient's oral intake status: good Denies contact with similarly ill indivduals. Associated signs and symptoms: Pertinent positives: Sore throat. The patient has not experienced similar symptoms in the past. The patient has not recently seen a physician. Pt reports sore throat and swollen lymphnodes that started yesterday. . 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 - Social history:: Smoking status: Patient denies any tobacco usage or history of. Patient uses alcohol, occasionally. ROS: 12:10 Constitutional: Negative for fever, chills, and weight loss. kb 12:10 ENT: Positive for sore throat. 12:10 All other systems are negative. Exam: 12:10 Constitutional: This is a well developed, well nourished patient who is awake, alert, kb and in no acute distress. Head/Face: Normocephalic, atraumatic. Cardiovascular: Regular rate and rhythm with a normal S1 and S2. No gallops, murmurs, or rubs. No pulse deficits. Respiratory: Respirations even and unlabored. No increased work of breathing. Talking in full sentences Skin: Warm, dry with normal turgor. Normal color. MS/ Extremity: Pulses equal, no cyanosis. Neurovascular intact. Full, normal range of motion. Neuro: Awake and alert, GCS 15, oriented to person, place, time, and situation. Moves all extremities. Normal gait. Psych: Awake, alert, with orientation to person, place and time. Behavior, mood, and affect are within normal limits. 12:10 ENT: Posterior pharynx: Airway: normal, Tonsils: bilaterally enlarged, with erythema, with exudate, Uvula: normal, midline, swelling, that is moderate, erythema, that is moderate, exudate, that is moderate. Vital Signs: 11:45 BP 140 / 88; Pulse 101; Resp 17; Temp 98.4(TE); Pulse Ox 99% on R/A; Weight 79.38 kg tw2 (R); Height 5 ft. 8 in. (172.72 cm); Pain 10/10; 12:31 BP 138 / 77; Pulse 90; Resp 16; Pulse Ox 100% ; vg1 11:45 Body Mass Index 26.61 (79.38 kg, 172.72 cm) tw2 MDM: 11:51 Patient medically screened. kb 12:07 Data reviewed: vital signs, nurses notes. Data interpreted: Pulse oximetry: on room air kb is 99 %. Interpretation: normal. 12:16 Counseling: I had a detailed discussion with the patient and/or guardian regarding: the kb historical points, exam findings, and any diagnostic results supporting the discharge/admit diagnosis, lab results, the need for outpatient follow up, a family practitioner, to return to the emergency department if symptoms worsen or persist or if there are any questions or concerns that arise at home. 11/11 11:53 Order name: Strep; Complete Time: 12:17 kb Administered Medications: 12:19 Drug: GI Cocktail without - (Maalox Suspension 30 ml, Lidocaine Liquid 2 % 15 vg1 ml) Route: PO; 12:31 Follow up: Response: No adverse reaction; No change in condition vg1 12:31 Drug: Bicillin L-A (penicillin G Benzathine) 1.2 million units Route: IM; Site: left vg1 gluteus; 12:45 Follow up: Response: No adverse reaction vg1 Disposition Summary: 11/11/21 12:20 Discharge Ordered Location: Home kb Condition: Stable kb Diagnosis - Streptococcal pharyngitis kb Followup: kb - With: Emergency Department - When: As needed - Reason: Worsening of condition Followup: kb - With: Private Physician - When: 2 - 3 days - Reason: Recheck today's complaints, Continuance of care, Re-evaluation by your physician Discharge Instructions: - Discharge Summary Sheet kb - Strep Throat, Adult, [id number] kb Forms: - Medication Reconciliation Form kb - Thank You Letter kb - Antibiotic Education kb - Prescription Opioid Use kb Addendum: 11/13/2021 07:19 Co-signature as Attending Physician, Jose Sargent MD I agree with the assessment and c alonzo plan of care. Signatures: Dispatcher [employer] EDLay Jimenez, SENIOR POLICY ADVISOR-C SENIOR POLICY ADVISOR-Jose Lund MD MD cha Wise, Tara, RN RN tw2 Shanna Arciniega, RN RN vg1
--- NOTE | 2021-11-11 12:20 | ER ---
Nurse's Notes [facility] Name: Ritika Lewis Age: 41 yrs Sex: Female : 1980 Arrival Date: 11/11/2021 Time: 11:42 Bed 11 Private MD: Diagnosis: Streptococcal pharyngitis Presentation: 11/11 11:45 Chief complaint: Patient states: very bad sore throat and my glands are swollen. tw2 started yesterday. it hurts to swallow. i did the salt water rinses and the lozenges then it just came back. Coronavirus screen: At this time, the client does not indicate any symptoms associated with coronavirus-19. Ebola Screen: Patient denies travel to an Ebola-affected area in the 21 days before illness onset. Initial Sepsis Screen: Does the patient meet any 2 criteria? No. Patient's initial sepsis screen is negative. Does the patient have a suspected source of infection? No. Patient's initial sepsis screen is negative. Risk Assessment: Do you want to hurt yourself or someone else? Patient reports no desire to harm self or others. Onset of symptoms was November 11, 2021. 11:45 Method Of Arrival: Ambulatory tw2 11:45 Acuity: MACKENZIE 4 tw2 Triage Assessment: 11:48 General: Appears in no apparent distress. Behavior is calm, cooperative, appropriate tw2 for age. Pain: Complains of pain in uvula, left aspect of posterior pharynx and right aspect of posterior pharynx. EENT: Reports pain when swallowing. 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 - Social history:: Smoking status: Patient denies any tobacco usage or history of. Patient uses alcohol, occasionally. Screenin:50 Abuse screen: Denies threats or abuse. Nutritional screening: No deficits noted. tw2 Tuberculosis screening: No symptoms or risk factors identified. Fall Risk None identified. Assessment: 11:50 Respiratory: Airway is patent Respiratory effort is even, unlabored, n/a. EENT: Throat tw2 is reddened. 11:53 General: Appears in no apparent distress. uncomfortable, Behavior is calm, cooperative. vg1 Pain: Complains of pain in throat and FAMILIA ears Pain currently is 10 out of 10 on a pain scale. Quality of pain is described as sharp, Pain began 1 day ago. Neuro: Level of Consciousness is awake, alert, obeys commands, Oriented to person, place, time, situation. Cardiovascular: Patient's skin is warm and dry. Respiratory: Airway is patent Respiratory effort is even, unlabored, Denies cough. GI: No signs and/or symptoms were reported involving the gastrointestinal system. : No signs and/or symptoms were reported regarding the genitourinary system. EENT: Throat is reddened pt states 'feels drainage going back of my throat and every so often my ears feel achy'. Derm: Skin is intact, is healthy with good turgor. Musculoskeletal: Circulation, motion, and sensation intact. Vital Signs: 11:45 BP 140 / 88; Pulse 101; Resp 17; Temp 98.4(TE); Pulse Ox 99% on R/A; Weight 79.38 kg tw2 (R); Height 5 ft. 8 in. (172.72 cm); Pain 10/10; 12:31 BP 138 / 77; Pulse 90; Resp 16; Pulse Ox 100% ; vg1 11:45 Body Mass Index 26.61 (79.38 kg, 172.72 cm) tw2 ED Course: 11:42 Patient arrived in ED. as 11:46 Lay Jones FNP-C is [facility]. kb 11:46 Jose Sargent MD is Attending Physician. kb 11:47 Triage completed. tw2 11:48 Arm band placed on. tw2 11:49 Shanna Arciniega, BE is Primary Nurse. vg1 11:50 Bed in low position. Call light in reach. tw2 12:00 Strep swab sent to lab. vg1 12:45 No provider procedures requiring assistance completed. Patient did not have IV access vg1 during this emergency room visit. Administered Medications: 12:19 Drug: GI Cocktail without - (Maalox Suspension 30 ml, Lidocaine Liquid 2 % 15 vg1 ml) Route: PO; 12:31 Follow up: Response: No adverse reaction; No change in condition vg1 12:31 Drug: Bicillin L-A (penicillin G Benzathine) 1.2 million units Route: IM; Site: left vg1 gluteus; 12:45 Follow up: Response: No adverse reaction vg1 Outcome: 12:20 Discharge ordered by MD. smith 12:45 Discharged to home ambulatory. vg1 12:45 Condition: good 12:45 Discharge instructions given to patient, Instructed on discharge instructions, follow up and referral plans. Demonstrated understanding of instructions, follow-up care. 12:45 Patient left the ED. vg1 Signatures: Lay Jones, NARROW FABRIC CALENDERER-C MARY ANNE-Herlinda Farias Tara RN RN tw2 Shanna Arciniega RN RN vg1
[2021-11-11] MEDS ORDERED: PEN G BENZ LA 1.2MU/2ML SYRINGE IM ONE (12:27)
[2021-11-11 12:59] VITALS: TEMP 98.4
[2021-11-11 13:00] VITALS: BP 138/77; O2SAT 100
== END 2021-11-11 12:45 | disposition home or self-care (01) ==
LOC: ER 11:40
DX: J02.0 Streptococcal pharyngitis (principal)
CPT/HCPCS: 87081; 96372; 99283; J0561

== ENCOUNTER 2022-07-06 17:49 | Emergency (ER) | payer SELFPAY ==
--- OUTSIDE RECORDS SUMMARY | 2022-07-06 17:53 | XMS REPORT | Continuity of Care Document ---
:1980 [address] [facility] Address [address] [place] [address] [address] [place] [id number] Care Team Providers Name Role Phone Kaleigh Carbajal Attending Clinician Unavailable Problems This patient has no known problems. Allergies, Adverse Reactions, Alerts This patient has no known allergies or adverse reactions. Medications This patient has no known medications. Procedures This patient has no known procedures. Encounters Start End Encounter Admission Attending Care Care Encounter Source Date/Time Date/Time Type Type Clinicians Facility Department ID 2021-09-11 Outpatient KEO Carbajal [facility] [id number] [facility] 13:13:10 [place] [id number] [facility] Results This patient has no known results.
[2022-07-06] MEDS ORDERED: BENZONATATE 100 MG CAP PO ONE (19:06)
--- NOTE | 2022-07-06 20:17 | RAD REPORT ---
EXAM DESCRIPTION: RAD - Chest Pa And Lat (2 Views) - 07/06/2022 8:10 pm CLINICAL HISTORY: COUGH Chest pain. COMPARISON: Chest Single View dated 08/01/2021; Chest Single View dated 04/20/2018 FINDINGS: The lungs are clear. The heart is normal in size. No displaced fractures. IMPRESSION: No acute or concerning finding suspected.
[2022-07-06 20:54] LABS: SARS-COV-2 RT PCR NEGATIVE (NEGATIVE)
--- NOTE | 2022-07-06 21:25 | EDPHYS ---
Physician Documentation [facility] Name: Ritika Lewis Age: 42 yrs Sex: Female : 1980 Arrival Date: 07/06/2022 Time: 17:50 Bed 15 Private MD: ED Physician Jose Sargent HPI: 07/06 19:00 This 42 yrs old Female presents to ER via Unassigned with complaints of Cough, cp Congestion. 19:00 The patient or guardian reports cough, that is intermittent, with productive sputum. cp 19:00 Onset: The symptoms/episode began/occurred 9 day(s) ago. Severity of symptoms: in the emergency department the symptoms are unchanged, despite home interventions. Associated signs and symptoms: Pertinent positives: fever, sore throat, congestion, Pertinent negatives: chest pain, diarrhea, vomiting. 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 Flu vaccine is not up to date. - Social history:: Smoking status: Patient denies any tobacco usage or history of. ROS: 19:05 Constitutional: Negative for body aches, chills, fever, poor PO intake. cp 19:05 Eyes: Negative for injury, pain, redness, and discharge. cp 19:05 ENT: Positive for sore throat, Negative for drainage from ear(s), ear pain, difficulty swallowing, difficulty handling secretions. 19:05 Cardiovascular: Negative for chest pain. 19:05 Respiratory: Positive for cough, "sounds productive", Negative for wheezing. 19:05 Abdomen/GI: Negative for abdominal pain, vomiting, diarrhea, constipation. 19:05 Neuro: Negative for altered mental status, headache, weakness. 19:05 All other systems are negative. Exam: 19:10 Constitutional: The patient appears in no acute distress, alert, awake, non-toxic, well cp developed, well nourished. 19:10 Head/Face: Normocephalic, atraumatic. cp 19:10 Eyes: Periorbital structures: appear normal, Conjunctiva: normal, no exudate, no injection, Sclera: no appreciated abnormality, Lids and lashes: appear normal, bilaterally. 19:10 ENT: External ear(s): are unremarkable, Nose: is normal, Mouth: Lips: moist, Oral mucosa: moist, Posterior pharynx: Airway: no evidence of obstruction, patent, Tonsils: no enlargement, no exudate, erythema, that is mild, exudate, is not appreciated. 19:10 Neck: ROM/movement: is normal, is supple, without pain, no range of motions limitations, no meningismus, Lymph nodes: no appreciated lymphadenopathy. 19:10 Chest/axilla: Inspection: normal. 19:10 Cardiovascular: Rate: normal, Rhythm: regular, Edema: is not appreciated, JVD: is not appreciated. 19:10 Respiratory: the patient does not display signs of respiratory distress, Respirations: normal, no use of accessory muscles, no retractions, labored breathing, is not present, Breath sounds: decreased breath sounds, are not appreciated, stridor, is not appreciated, + upper airway congestion. wheezing: is not appreciated. 19:10 Abdomen/GI: Exam negative for discomfort, distension, guarding, Inspection: abdomen appears normal. 19:10 Skin: no rash present. Vital Signs: 19:50 BP 170 / 89; Pulse 74; Resp 18 S; Temp 98.8(O); Pulse Ox 97% on R/A; Weight 72.12 kg as6 (R); Height 5 ft. 7 in. (170.18 cm) (R); Pain 3/10; 22:00 BP 156 / 78; Pulse 75; Resp 17; Temp 98.6; Pulse Ox 98% ; ke1 19:50 Body Mass Index 24.90 (72.12 kg, 170.18 cm) as6 MDM: 20:01 Patient medically screened. [facility] 21:24 Data reviewed: vital signs, nurses notes, lab test result(s), radiologic studies, plain cp films. 21:24 Differential Diagnosis: Bronchitis Influenza Sinusitis Pharyngitis Otitis Media cp Pneumonia. Test interpretation: by ED physician or midlevel provider: plain radiologic studies. Counseling: I had a detailed discussion with the patient and/or guardian regarding: the historical points, exam findings, and any diagnostic results supporting the discharge/admit diagnosis, lab results, radiology results, to return to the emergency department if symptoms worsen or persist or if there are any questions or concerns that arise at home. ED course: VSS. Patient appears non-toxic and no signs of respiratory distress. Will discharge to home for continued monitoring. 07/06 18:56 Order name: Strep; Complete Time: 21:23 cp 07/06 21:23 Interpretation: Reviewed. 07/06 18:56 Order name: COVID-19/FLU A+B; Complete Time: 21:23 cp 07/06 21:23 Interpretation: Reviewed. 07/06 18:56 Order name: XRAY Chest Pa And Lat (2 Views); Complete Time: 21:23 cp 07/06 21:24 Interpretation: Report reviewed. 07/06 21:08 Order name: Throat Culture EDMS Administered Medications: 19:56 Drug: Tessalon Perle (benzonatate) 200 mg Route: PO; as6 Disposition Summary: 07/06/22 21:24 Discharge Ordered Location: Home cp Problem: new cp Symptoms: have improved cp Condition: Stable cp Diagnosis - Acute bronchitis, unspecified cp - Elevated blood-pressure reading, without diagnosis of hypertension cp Followup: cp - With: Private Physician - When: 2 - 3 days - Reason: Worsening of condition Discharge Instructions: - Discharge Summary Sheet cp - Acute Bronchitis, Adult cp - How to Take Your Blood Pressure cp Forms: - Medication Reconciliation Form cp - Thank You Letter cp - Antibiotic Education cp - Prescription Opioid Use cp Prescriptions: - Bromfed DM 2-30-10 mg/5 mL Oral syrup - take 10 milliliter by ORAL route every 6 hours; 180 milliliter; Refills: 0, cp Product Selection Permitted - Zithromax Z-Claudio 250 mg Oral Tablet - take 1 tablet by ORAL route as directed for 5 days Day 1 - take two (2) tablets cp one time. Day 2, 3, 4 , 5 take one (1) tablet once daily.; 6 tablet; Refills: 0, Product Selection Permitted Signatures: Dispatcher [employer] EDJose Mejia MD MD cha Page, Corey, PA PA cp John Anne, RN RN as6
--- NOTE | 2022-07-06 21:25 | ER ---
Nurse's Notes [facility] Name: Ritika Lewis Age: 42 yrs Sex: Female : 1980 Arrival Date: 07/06/2022 Time: 17:50 Bed 15 Private MD: Diagnosis: Acute bronchitis, unspecified;Elevated blood-pressure reading, without diagnosis of hypertension Presentation: 07/06 19:50 Chief complaint: Patient states: "I've had cough, congestion and a sore throat". as6 Coronavirus screen: Client presents with at least one sign or symptom that may indicate coronavirus-19. Ebola Screen: No symptoms or risks identified at this time. Initial Sepsis Screen: Does the patient meet any 2 criteria? No. Patient's initial sepsis screen is negative. Does the patient have a suspected source of infection? No. Patient's initial sepsis screen is negative. Risk Assessment: Do you want to hurt yourself or someone else? Patient reports no desire to harm self or others. Onset of symptoms was June 26, 2022. 19:50 Method Of Arrival: Ambulatory as6 19:50 Acuity: MACKENZIE 4 as6 Triage Assessment: 20:21 General: Appears in no apparent distress. Behavior is calm, cooperative. Pain: as6 Complains of pain in face. EENT: Reports nasal congestion nasal discharge. Respiratory: Reports cough that is. 21:59 Respiratory: Breath sounds are clear. 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 Flu vaccine is not up to date. - Social history:: Smoking status: Patient denies any tobacco usage or history of. Screenin:40 Abuse screen: Denies threats or abuse. Nutritional screening: No deficits noted. ke1 Tuberculosis screening: No symptoms or risk factors identified. Fall Risk None identified. Assessment: 21:40 Cardiovascular: Capillary refill < 3 seconds. Respiratory: Airway is patent. ke1 Vital Signs: 19:50 BP 170 / 89; Pulse 74; Resp 18 S; Temp 98.8(O); Pulse Ox 97% on R/A; Weight 72.12 kg as6 (R); Height 5 ft. 7 in. (170.18 cm) (R); Pain 3/10; 22:00 BP 156 / 78; Pulse 75; Resp 17; Temp 98.6; Pulse Ox 98% ; ke1 19:50 Body Mass Index 24.90 (72.12 kg, 170.18 cm) as6 ED Course: 17:50 Patient arrived in ED. as 18:09 Jose Wise PA is PHCP. cp 18:09 Jose Sargent MD is Attending Physician. cp 19:55 Triage completed. as6 19:56 Arm band placed on. as6 19:59 Strep Sent. as6 19:59 COVID-19/FLU A+B Sent. as6 20:12 XRAY Chest Pa And Lat (2 Views) In Process Unspecified. EDMS 20:59 Kota Pop, RN is Primary Nurse. ke1 21:40 Bed in low position. ke1 21:59 No provider procedures requiring assistance completed. Patient did not have IV access ke1 during this emergency room visit. Administered Medications: 19:56 Drug: Tessalon Perle (benzonatate) 200 mg Route: PO; as6 Medication: 22:00 VIS not applicable for this client. ke1 Outcome: 21:24 Discharge ordered by . cp 21:40 Discharged to home ambulatory. ke1 21:40 Condition: good 21:40 Discharge instructions given to patient. 22:01 Patient left the ED. ke1 Signatures: Dispatcher [employer] EDIN Herlinda Conrad as Jose Wise PA PA cp John Anne, RN RN as6 Kota Pop, BE RN ke1
[2022-07-06 22:08] VITALS: BP 156/78; TEMP 98.6; O2SAT 98
== END 2022-07-06 22:01 | disposition home or self-care (01) ==
LOC: ER 17:49
DX: J20.9 Acute bronchitis, unspecified (principal); R03.0 Elevated blood-pressure reading, without diagnosis of hypertension; Z20.822 Contact with and (suspected) exposure to COVID-19
CPT/HCPCS: 0240U; 71046; 87070; 87081; 99283